=== PATIENT | male | born 1965 | race American Indian/Alaskan Native ===

== ENCOUNTER 2021-03-04 15:52 | Emergency (ER) | payer SELFPAY ==
[2021-03-04 16:21] VITALS: BP 176/83
--- NOTE | 2021-03-04 17:19 | Emergency Department Report ---
ED General Adult HPI - General Chief complaint: High BP Stated complaint: BLOOD PRESSURE Time Seen by Provider: 03/04/21 17:08 Source: patient Mode of arrival: Ambulatory Limitations: No Limitations - History of Present Illness Initial comments: Patient is a 55-year-old male presents emergency room with complaints of elevated blood pressure. He states he went to donate plasma and was advised that his blood pressure was 200 systolic. He states he has been out of his medication for 6 months. He states he has not seen a doctor secondary to lack of insurance. He states he supposed to be taking losartan HCTZ 100 mg / 12.5 mg and Metformin 1000 mg twice daily. He states he has mild headache. He denies any chest pain, shortness of breath, difficulty urinating, leg swelling, vision changes. Past medical history of hypertension and diabetes. No allergies to medications. Severity scale (0 -10): 0 - Related Data Home Medications Medication Instructions Recorded Confirmed Last Taken Hydromorphone HCl [Dilaudid] 1 tab PO Q4H PRN 06/21/13 06/21/13 06/21/13 10:00 Previous Rx's Medication Instructions Recorded Last Taken Type Ciprofloxacin/Ciprofloxa HCl 500 mg PO 2XW #20 tab 06/21/13 Unknown Rx [Cipro Xr 500 mg Tablet] HYDROcodone/ACETAMINOPHEN [Donald 1 each PO 4XD #14 tablet 06/21/13 Unknown Rx 5/325 Tablet] Losartan/Hydrochlorothiazide 1 each PO DAILY #30 tablet 03/04/21 Unknown Rx [Losartan-Hctz 100-12.5 mg Tab] Metformin HCl [metFORMIN] 1,000 mg PO BID 30 Days #60 tablet 03/04/21 Unknown Rx Allergies Allergy/AdvReac Type Severity Reaction Status Date / Time adhesive Allergy Rash Verified 06/21/13 14:10 ED Review of Systems ROS: Stated complaint: BLOOD PRESSURE Other details as noted in HPI Comment: All other systems reviewed and negative ED Past Medical Hx - Past Medical History Previous Medical History?: Yes Hx Hypertension: Yes Hx Asthma: No - Surgical History Past Surgical History?: Yes Additional Surgical History: circumcision. mass from testicle removed - Social History Smoking Status: Never Smoker Substance Use Type: Alcohol - Medications Home Medications: Home Medications Medication Instructions Recorded Confirmed Last Taken Type Ciprofloxacin/Ciprofloxa HCl 500 mg PO 2XW #20 tab 06/21/13 Unknown Rx [Cipro Xr 500 mg Tablet] HYDROcodone/ACETAMINOPHEN [Donald 1 each PO 4XD #14 tablet 06/21/13 Unknown Rx 5/325 Tablet] Hydromorphone HCl [Dilaudid] 1 tab PO Q4H PRN 06/21/13 06/21/13 06/21/13 10:00 History Losartan/Hydrochlorothiazide 1 each PO DAILY #30 tablet 03/04/21 Unknown Rx [Losartan-Hctz 100-12.5 mg Tab] Metformin HCl [metFORMIN] 1,000 mg PO BID 30 Days #60 tablet 03/04/21 Unknown Rx ED Physical Exam - General Limitations: No Limitations General appearance: alert, in no apparent distress - Head Head exam: Present: atraumatic, normocephalic - Eye Eye exam: Present: normal appearance - ENT ENT exam: Present: mucous membranes moist - Respiratory Respiratory exam: Present: normal lung sounds bilaterally. Absent: respiratory distress, wheezes, rales, rhonchi, stridor, chest wall tenderness, accessory muscle use, decreased breath sounds, prolonged expiratory - Cardiovascular Cardiovascular Exam: Present: regular rate, normal rhythm, normal heart sounds. Absent: systolic murmur, diastolic murmur, rubs, gallop - Neurological Exam Neurological exam: Present: alert, oriented X3, CN II-XII intact, normal gait. Absent: motor sensory deficit - Psychiatric Psychiatric exam: Present: normal affect, normal mood - Skin Skin exam: Present: warm, dry, intact ED Course Vital Signs 03/04/21 03/04/21 16:19 16:20 Temperature 98.4 F 98.4 F Pulse Rate 81 Respiratory 20 20 Rate Blood Pressure 176/83 Blood Pressure 176/83 [Right] O2 Sat by Pulse 98 Oximetry ED Medical Decision Making - Medical Decision Making Patient is a 55-year-old male presents emergency room with complaints of elevated blood pressure. He states he went to donate plasma and was advised that his blood pressure was 200 systolic. He states he has been out of his medication for 6 months. He states he has not seen a doctor secondary to lack of insurance. He states he supposed to be taking losartan HCTZ 100 mg / 12.5 mg and Metformin 1000 mg twice daily. He states he has mild headache. He denies any chest pain, shortness of breath, difficulty urinating, leg swelling, vision changes. Past medical history of hypertension and diabetes. No allergies to medications. Vitals with elevated blood pressure of 176/83 otherwise stable. Patient has no abnormality on physical examination as documented in chart. He has no focal neuro deficits. Patient be given prescription for his home medication. Discussed the importance of outpatient primary care follow-up for management of his chronic conditions. Advised patient Please take medication as prescribed. Eat a low-sodium diet. Eat a low carbohydrate/low sugar diet. Increase your water intake. Incorporate 3060 minutes daily exercise. Follow-up with your primary care doctor for management of your chronic conditions. Return to emergency room for any new or worsening symptoms. Critical care attestation.: If time is entered above; I have spent that time in minutes in the direct care of this critically ill patient, excluding procedure time. ED Disposition Clinical Impression: Medication refill, Elevated blood pressure reading Headache Qualifiers: Headache type: unspecified Headache chronicity pattern: acute headache Intractability: not intractable Qualified Code(s): R51.9 - Headache, unspecified Disposition: 01 HOME / SELF CARE / HOMELESS Is pt being admited?: No Does the pt Need Aspirin: No Condition: Stable Instructions: Preventing Type 2 Diabetes Mellitus, Managing Your Hypertension Additional Instructions: Please take medication as prescribed. Eat a low-sodium diet. Eat a low carbohydrate/low sugar diet. Increase your water intake. Incorporate 3060 minutes daily exercise. Follow-up with your primary care doctor for management of your chronic conditions. Return to emergency room for any new or worsening symptoms. Prescriptions: Losartan/Hydrochlorothiazide [Losartan-Hctz 100-12.5 mg Tab] 1 each PO DAILY #30 tablet Metformin HCl [metFORMIN] 1,000 mg PO BID 30 Days #60 tablet Referrals: ENMA AZEVEDO MD [Staff Physician] - 3-5 Days [facility] [Provider Group] - 3-5 Days [facility] [place][Note 3] [Outside] - 3-5 Days [facility], [LAB/CONTRACT] - 3-5 Days [facility] [Outside] - 3-5 Days Time of Disposition: 17:17 Print Language: CAMEROONIAN
== END 2021-03-04 18:07 | disposition home or self-care (01) ==
LOC: ED 15:52
DX: R03.0 Elevated blood-pressure reading, without diagnosis of hypertension (principal); Z76.0 Encounter for issue of repeat prescription; R51.9 Headache, unspecified; I10 Essential (primary) hypertension; Z72.89 Other problems related to lifestyle; Z79.899 Other long term (current) drug therapy; Z91.09 Other allergy status, other than to drugs and biological substances
CPT/HCPCS: 99281